=== PATIENT | male | born 1980 ===

== ENCOUNTER 2016-04-01 17:29 | Emergency (ER) | payer MEDICAID ==
[2016-04-01] MEDS ORDERED: IOPAMIDOL 300 (61%) 150 ML VIAL IV ONE (17:30)
[2016-04-01] MEDS ORDERED: ASPIRIN CHEWTAB 81 MG TABLET ONE (18:10)
[2016-04-01] MEDS ORDERED: LACTATED RINGERS 1,000 ML ONE (18:11)
[2016-04-01] MEDS ORDERED: DIAZEPAM 5 MG/ML SYRINGE 2 ML ONE (18:11)
[2016-04-01 18:30] LABS: ABSOLUTE NEUTROPHIL COUNT 10.1 K/mm3 (1.8-7.7); BASO % 0.4 % (0.2-1.0); EOS % 0.3 % (0.9-2.9); HEMATOCRIT 40.9 % (32.0-52.0); IMM NEUT% 0.4 % (0-1); LYMPH # 0.4 (1.0-4.8); LYMPH % 3.8 % (15-45); MEAN CELL VOLUME 91.3 fl (80.0-94.0); MEAN CORPUSCULAR HGB CONC 31.8 g/dl (33.0-37.0); MEAN PLATELET VOLUME 10.2 fl (7.4-10.4); MONO # 0.7 (0.0-0.8); MONO % 6.3 % (4-12); NEUT % 88.8 % (43-75); PLATELET COUNT 259 K/mm3 (130-400); RED CELL DISTRIBUTION WIDTH 13.9 % (11.5-14.5)
[2016-04-01 18:41] LABS: ALB/GLOB RATIO 0.9 (>1.0); ALBUMIN 3.7 gm/dL (3.5-5.7); CALCIUM 8.6 mg/dL (8.6-10.3); MAGNESIUM 1.4 mg/dL (1.9-2.7)
[2016-04-01 19:17] LABS: PH,URINE 6.5 (5.0-8.0); URINE BILIRUBIN NEGATIVE (NEGATIVE); URINE BLOOD NEGATIVE (NEGATIVE); URINE GLUCOSE (UA) NEGATIVE (NEGATIVE); URINE LEUKOCYTE ESTERASE NEGATIVE (NEGATIVE); URINE NITRITE NEGATIVE (NEGATIVE); URINE PROTEIN NEGATIVE (NEGATIVE); URINE UROBILINOGEN NORMAL (0-1 mg/dl)
[2016-04-01 19:18] LABS: URINE APPEARANCE CLEAR; URINE COLOR YELLOW
[2016-04-01] MEDS ORDERED: DIAZEPAM 5 MG TABLET ONE (19:28)
[2016-04-01] MEDS ORDERED: CIPROFLOXACIN 250 MG TABLET ONE (23:34)
--- NOTE | 2016-04-02 08:26 | CT ---
CT ABDOMEN AND PELVIS WITH CONTRAST HISTORY: Abdominal pain, history of colitis. TECHNIQUE: Following intravenous administration of 100 mL Isovue-300, contiguous axial images were acquired from the lung bases to the ischial tuberosities. Oral contrast was not administered. COMPARISON: 06/05/2010 FINDINGS: LUNG BASES: No gross airspace consolidation or pleural effusion. LIVER: Findings of diffuse fatty infiltration SPLEEN: No focal lesion. PANCREAS: No focal lesion. ADRENAL GLANDS: No mass effect. KIDNEYS: No focal lesion. No collecting system dilatation. GALLBLADDER: Present. BOWEL: Abnormal appearance of the colon with a relatively a haustral appearance and features of diffuse wall thickening, more focally prominent along the hepatic flexure, along a 4 cm segment with associated luminal narrowing. No abnormal small bowel dilatation. APPENDIX: Small linear retrocecal structure suggesting small normal appendix. PELVIC ORGANS: No gross mass effect. FREE FLUID: No gross free fluid identified. ABDOMINOPELVIC LYMPH NODES: Increased number of right lower quadrant mesenteric lymph nodes, measuring up to 1.8 cm in size. ABDOMINAL AORTA: Normal caliber. OSSEOUS STRUCTURES: No destructive lesions is grossly unremarkable. Minor disc osteophyte ridge formation at L5-S1. IMPRESSION: 1. Ahaustral colon, correlate for a history of ulcerative colitis. Focal wall thickening with narrowing of colonic caliber at the hepatic flexure, worrisome for superimposed mass lesion, recommend endoscopic correlation to exclude aggressive mucosal disease. 2. Mesenteric adenopathy. 3. Fatty infiltration of the liver. Preliminary report relayed to the Emergency Medicine medical service by Dr. Nicole on 04/01/2016 at 2259 hours. Findings also discussed with Dr. Apodaca of the emergency medicine service at 04/02/2016 at 0822 hours.
--- NOTE | 2016-04-02 08:27 | RAD ---
CHEST 2 VIEWS HISTORY: Chest pain. Frontal and lateral chest radiographs dated 04/01/2016. COMPARISON: None. FINDINGS: FOCAL AIRSPACE OPACITY: No gross airspace consolidation. PLEURAL EFFUSION: None. CARDIOMEDIASTINAL SILHOUETTE: Nonenlarged. PNEUMOTHORAX: None identified. OSSEOUS STRUCTURES: No grossly destructive lesions. ABDOMEN: Relatively ahaustral colonic gas pattern. IMPRESSION: No acute cardiopulmonary process noted. Abnormal appearance of colonic gas, please refer to concurrent CT findings.
== END 2016-04-01 23:51 | disposition home or self-care (01) ==
LOC: ED 17:29
DX: R07.9 Chest pain, unspecified (principal); K52.9 Noninfective gastroenteritis and colitis, unspecified; F10.10 Alcohol abuse, uncomplicated; F15.10 Other stimulant abuse, uncomplicated
CPT/HCPCS: 83690; 85025; 80053; 80307; 83735; 81003; 84484 ×2; 71020; 74177; 99284 ×2; 96374; 96361 ×3; 93005 ×2; A9270 ×3; J3360; J7120; Q9967

== ENCOUNTER 2016-04-04 06:34 | Day surgery (SDC) | payer SELFPAY ==
[~2016-04-04 06:34] MED LIST: FENTANYL 250 MCG/5 ML AMP IV PRN; IV START KIT ONE; LACTATED RINGERS 1,000 ML IV SCH; LACTATED RINGERS 1,000 ML ONE; MIDAZOLAM HCL 5 MG/5 ML VIAL IV PRN
[2016-04-04] MEDS ORDERED: MIDAZOLAM HCL 5 MG/5 ML VIAL ONE (07:18)
[2016-04-04] MEDS ORDERED: FENTANYL 5 ML ONE (07:18)
[2016-04-04] MEDS ORDERED: MIDAZOLAM HCL 1 MG/ML 2ML VIAL ONE (07:44)
--- NOTE | 2016-04-08 09:40 | SURGPATH ---
[facility] [address] [place] [id number] Patient Name: SALLIE CORREA MR#: [id number] : 1980 Gender: M Specimen #: [id number] Collected: 04/04/2016 Received: 04/07/2016 Reported: 04/08/2016 Submitting Phys: SHIV KEYES Copy To Phys: [facility] Clinical History / Pre-Operative Diagnosis: Abdominal pain; colitis Specimen Source / Surgical Procedure Performed: #1-ilium; #2-cecum; #3-sigmoid at 30 cm; #4-hepatic flexure Interpretation: 1. TERMINAL ILEUM, BIOPSY: - NO PATHOLOGIC ABNORMALITY 2. CECUM, BIOPSIES: - CHRONIC ACTIVE COLITIS - NEGATIVE FOR DYSPLASIA 3. SIGMOID, BIOPSIES: - SEVERELY ACTIVE CHRONIC COLITIS WITH ULCER - NEGATIVE FOR DYSPLASIA 4. HEPATIC FLEXURE, BIOPSIES: - SEVERELY ACTIVE CHRONIC COLITIS WITH ULCER - NEGATIVE FOR DYSPLASIA Electronically Signed Out Joesph Merida M.D. Gross Description: #1 The specimen is received in a formalin filled container labeled with the patient's name and "ileum". Two sears biopsies are each 0.5 cm. Totally embedded in cassette #1. #2 The specimen is received in a formalin filled container labeled with the patient's name and "cecal biopsy". Two sears biopsies are 0.2 and 0.3 cm. Totally embedded in cassette #2. #3 The specimen is received in a formalin filled container labeled with the patient's name and "sigmoid". Two pale sears biopsies are 0.1 and 0.3 cm. Totally embedded in cassette #3. #4 The specimen is received in a formalin filled container labeled with the patient's name and "hepatic flexure". Eight sears biopsies are 0.2-0.3 cm. Totally embedded in cassette #4. Diego Bunn Microscopic Description: Microscopic performed. 1: 91280 2: 15217 3: 50050 4: 04609 K51.90
== END 2016-04-04 08:50 | disposition home or self-care (01) ==
LOC: SDC 06:34
PROVIDERS: ATTEND Internal Medicine Gastroenterology
PROC: 0DBB8ZX Excision of Ileum, Via Natural or Artificial Opening Endoscopic, Diagnostic (ICD-10-PCS; principal; 2016-04-04)
PROC: 0DBL8ZX Excision of Transverse Colon, Via Natural or Artificial Opening Endoscopic, Diagnostic (ICD-10-PCS; 2016-04-04)
PROC: 0DBH8ZX Excision of Cecum, Via Natural or Artificial Opening Endoscopic, Diagnostic (ICD-10-PCS; 2016-04-04)
PROC: 0DBN8ZX Excision of Sigmoid Colon, Via Natural or Artificial Opening Endoscopic, Diagnostic (ICD-10-PCS; 2016-04-04)
DX: K51.80 Other ulcerative colitis without complications (principal)
CPT/HCPCS: 45380; J3010; J2250; J7120